=== PATIENT | female | born 1990 | race Caucasian/White ===

== ENCOUNTER 2019-11-01 08:30 | Emergency (ER) | payer MEDICAID, SELFPAY ==
[2019-11-01 08:42] VITALS: BP 120/66; PULSE 92; RESP 18; TEMP 37.2; O2SAT 98
--- NOTE | 2019-11-01 09:03 | ED.GENADUL_ITS ---
Discharge Plan Disposition Patient Disposition: HOME Condition: Stable Discharge Details Chief Complaint: RashLesion Clinical Impression: Dermatitis Primary Care Provider: None,None ED Provider: Noel Ferguson Home Meds and New Rx's Prescriptions: New hydrocortisone 2 % lotion 1 applic TP BID PRNQty: 29.6 RF: 0 Continued buprenorphine-naloxone [Suboxone] 8-2 mg film 2 film sublingual DAILY RF: 0 Discharge Instructions Instructions: Dermatitis (ED) Additional Instructions: Hydrocortisone as directed. Cejg-bmc-kyrhjls Benadryl as directed, remember this may cause drowsiness. Please watch for new or worsening symptoms and return to the ER for any concerns. As we discussed, and the small chance this is actually a fungal infection, you will likely get worse using the steroid cream. If this occurs I recommend discontinuing the cream and using lyeb-nho-hdjtchx antifungal medication however if you are unsure I would recommend being reevaluated. As we discussed, sometimes a skin biopsy is indicated for a more definitive diagnosis Medical Decision Making 28-year-old female presents with rash that is been present over the past week. Unknown obvious environmental exposure. They do not appear infected. No signs of systemic reaction. Given there are 4 separate lesions, in different locations, without scaling, less likely ringworm. Certainly could be insect bite from the recent camping trip or some other dermatitis. We discussed our options. She can use qyzw-gsd-rfgnqgn Benadryl and topical hydrocortisone cream. We did discuss in the small chance that this is truly ringworm, she will likely get worse with the steroids, would discontinue immediately, and then opt for lejo-obq-ohsxhqi antifungal. Patient is comfortable with this plan and has no additional questions or concerns. HPI General Mode of arrival: ambulatory . Date/Time Provider Initiated Documentation: 11/01/19 08:44 . Limitations to Documentation: no limitations . Information obtained by: patient . HPI Narrative: This is a 28-year-old female presenting for a rash that has been present for approximately 1 week on her left arm, subsequently developed a similar rash on her right arm and now onto her right hip. She denies any pain or itching, today they begin to burn slightly. She has not tried any xgcx-tpe-toerzno medication for her symptoms. Has never had a reaction like this before. She reports that she works for [employer] and questions that she may have come in contact with something. She also reports that she recently went camping questions that she may have received a bug bite. She denies any fever, shortness of breath, wheezing, tongue swelling, rash elsewhere on her body. Related Data Home Medications Medication Instructions Recorded Confirmed buprenorphine-naloxone [Suboxone] 2 film SUBLINGUAL DAILY 11/01/19 11/01/19 hydrocortisone 1 applic TP BID PRN #29.6 ml 11/01/19 Previous Rx's Medication Instructions Recorded hydrocortisone 1 applic TP BID PRN #29.6 ml 11/01/19 Allergies Allergy/AdvReac Type Severity Reaction Status Date / Time acetaminophen [From Vicodin] Allergy Swelling/Ed Unverified 11/01/19 08:48 ki hydrocodone [From Vicodin] Allergy Swelling/Ed Unverified 11/01/19 08:48 ki latex Allergy Swelling/Ed Unverified 11/01/19 08:48 ki General Stated Complaint: RashLesion LIANA: 4 Review of Systems Constitutional Constitutional: Denies fever(s) and Denies weakness ENT Ears, Nose, Mouth, and Throat: Denies throat swelling Cardiovascular Cardiovascular: Denies dyspnea Respiratory Respiratory: Denies dyspnea and Denies wheezing Musculoskeletal Musculoskeletal: Denies back pain, Denies arthralgias and Denies tingling Integumentary/Breasts Skin/Breast: Reports rash Neurologic Neurologic: Denies tingling and Denies weakness Allergic/Immunologic Allergic/Immunologic: Denies throat swelling and Denies wheezing [facility] Social History Smoking/Tobacco Use Status: Current every day Tobacco Type: cigarettes Years smoked: 15 Alcohol Intake: never Drug use: Daily Substance use type: marijuana Do you feel safe at home: Yes Do you feel safe in your relationship?: Yes Exam Const General: cooperative, healthy appearing, comfortable and no acute distress Orientation: alert and awake [facility] Head: normal to inspection, normocephalic and atraumatic Mouth: moist mucous membranes Eyes Conjunctivae: conjunctivae normal Neck Neck: normal visual inspection, trachea midline and supple Resp Effort & Inspection: normal respiratory effort and able to speak in complete sentences Cardio Rate: regular rate Rhythm: regular rhythm Skin Other: Patient has 4 separate lesions. 2 on the left forearm, one on the right forearm, one on the right hip. Left forearm size is a half dollar size and a dime size, right forearm is nickel size, right hip is dime size. All are papular, circular, erythematous. Well demarcated. No scaling or dryness. There is no warmth, induration, fluctuance, lymphangitic streaking. The areas are blanchable. No petechiae Neuro General: patient alert, patient awake, moves all extremities and no focal motor deficits Sensory Exam: no sensory deficits noted Extrem General: full ROM and no pedal edema Psych Appearance: grossly normal Mental Status: mental status grossly normal Course Vital Signs Vital signs: Vital Signs Temperature 37.2 C 11/01/19 08:42 Pulse 92 H 11/01/19 08:42 Respiratory Rate 18 11/01/19 08:42 Blood Pressure 120/66 11/01/19 08:42 Pulse Oximetry 98 11/01/19 08:42 Temperature 37.2 C 11/01/19 08:42 Temperature Source Skin 11/01/19 08:42 Pulse 92 H 11/01/19 08:42 Respiratory Rate 18 11/01/19 08:42 Respiratory Effort Non-Labored 11/01/19 08:42 Blood Pressure 120/66 11/01/19 08:42 Blood Pressure Position Sitting 11/01/19 08:42 Pulse Oximetry 98 11/01/19 08:42 Oxygen Delivery Method Room Air 11/01/19 08:42 Oxygen Flow Rate 0 11/01/19 08:42 Pain Level 0 11/01/19 08:42
== END 2019-11-01 09:20 | disposition home or self-care (01) ==
PROVIDERS: Emergency Provider Physician Assistant
DX: L30.8 Other specified dermatitis (principal)
CPT/HCPCS: 99283

== ENCOUNTER 2020-01-28 12:29 | Outpatient (REF) | payer MEDICAID, SELFPAY ==
[2020-01-28 19:23] LABS: Anion Gap 6.8 mmol/L (3-11); BUN 12 mg/dL (7-18); CO2 28.2 mmol/L (21.0-32.0); CREATININE 0.85 mg/dL (0.55-1.02); Calcium 9.1 mg/dL (8.5-10.1); Calculated LDL 155 mg/dL (<100); Chloride 103 mmol/L (98-107); Cholesterol 229 mg/dL (<200); Glucose 87 mg/dL (74-106); HDL Cholesterol 55 mg/dL (40-60); Potassium 4.2 mmol/L (3.5-5.1); Sodium 138 mmol/L (136-145); Triglyceride 98 mg/dL (<150)
[2020-02-04 15:17] LABS: Factor V Leiden(R506Q) Mut Negative (Negative)
== END 2020-01-28 12:49 ==
LOC: NCHCN 12:29
PROVIDERS: Visit Provider Physician Assistant
DX: Z13.228 Encounter for screening for other metabolic disorders (principal); Z13.220 Encounter for screening for lipoid disorders; Z13.0 Encounter for screening for diseases of the blood and blood-forming organs and certain disorders involving the immune mechanism
CPT/HCPCS: 80048; 80061; 81241

== ENCOUNTER 2021-09-07 23:10 | Emergency (ER) | payer MEDICAID, SELFPAY ==
[2021-09-07 23:17] VITALS: BP 125/77; PULSE 97; RESP 16; TEMP 36.8; O2SAT 98
--- NOTE | 2021-09-07 23:27 | ED.GENADUL_ITS ---
Discharge Plan Disposition Patient Disposition: HOME Condition: Good Discharge Details Clinical Impression: Pain, dental Primary Care Provider: Hussain Segura ED Provider: Matthew Doshi Home Meds and New Rx's Prescriptions: New penicillin V potassium 500 mg tablet 500 mg PO QID 10 Days Qty: 40 0RF Continued buprenorphine-naloxone [Suboxone] 8-2 mg film 2 film sublingual DAILY Label Comments: PLACE TWO FILMS UNDER THE TONGUE EVERY DAY Discharge Instructions Instructions: Toothache (ED) Additional Instructions: The block we administered should help improve your pain. Please take 800 mg of ibuprofen every 6 hours and 1000 mg of Tylenol every 6 hours to help with the inflammation and pain. These are the maximum doses. Please take the antibiotic as directed to help with the infection in your tooth. Please use the dental list that we have provided to contact the dentist for prompt follow-up and evaluation for tooth removal. If you notice any worsening of your symptoms, or any new symptoms such as difficulty swallowing, difficulty breathing, vomiting, diarrhea, fever, chills, shortness of breath, chest pain, numbness, weakness, or fainting , please return immediately to the emergency department for reevaluation. Please follow up with your primary care provider as soon as possible for reassessment and reevaluation. As always, it was a pleasure participating in your medical care today. Referrals: Hussain Segura [Primary Care Provider] - Medical Decision Making This is a 30-year-old female with no significant past medical history who is currently on Suboxone who presents today for evaluation of right upper dental pain. Patient has notably poor dentition, and she has not yet seen the dentist. Over the last 36 hours she has noticed pain and swelling in the right upper area by her right upper canine. She has been taking Tylenol with some improvement. She has not been able to start on an antibiotic yet. She denies any difficulty swallowing. Denies fever. No other complaints at this time. No other modifying factors. Physical exam demonstrates notably poor dentition throughout. No evidence of abscess failure. There is some mild swelling of the right canine area. Bedside ultrasound shows no evidence of fluid collection though currently. Dental block was performed and the patient has complete resolution of her pain. She tolerated this well. Consent was given. We will give a bottle of penicillin here and a prescription for home. Will give dental sheet for home use. Discussed red flags which to return. I have extensively reviewed the treatment plan and discharge instructions with the patient. I have addressed all patient concerns at this time. The patient was made aware of what symptoms to monitor for that would warrant a return to the emergency department. Discussed the plan with the patient, they demonstrate verbal understanding and agreement with our assessment and plan at this time. The documentation in this chart was dictated using [employer] dictation software. Please excuse any dictation errors. HPI General Date/Time Provider Initiated Documentation: 09/07/21 23:12 . HPI Narrative: This is a 30-year-old female with no significant past medical history who is currently on Suboxone who presents today for evaluation of right upper dental pain. Patient has notably poor dentition, and she has not yet seen the dentist. Over the last 36 hours she has noticed pain and swelling in the right upper area by her right upper canine. She has been taking Tylenol with some improvement. She has not been able to start on an antibiotic yet. She denies any difficulty swallowing. Denies fever. No other complaints at this time. No other modifying factors. Related Data Home Medications Medication Instructions Recorded Confirmed buprenorphine 8 mg-naloxone 2 mg 2 film sublingual DAILY 11/01/19 09/07/21 sublingual film (Suboxone) penicillin V potassium 500 mg 500 mg PO QID 10 days #40 tabs 09/07/21 tablet Previous Rx's Medication Instructions Recorded penicillin V potassium 500 mg 500 mg PO QID 10 days #40 tabs 09/07/21 tablet Allergies Allergy/AdvReac Type Severity Reaction Status Date / Time acetaminophen [From Vicodin] Allergy Swelling/Ed Unverified 09/07/21 23:20 ki hydrocodone [From Vicodin] Allergy Swelling/Ed Unverified 09/07/21 23:20 ki latex Allergy Swelling/Ed Unverified 09/07/21 23:20 ki General Stated Complaint: DentalOral LIANA: 4 Review of Systems All systems reviewed & are unremarkable except as noted in HPI and below PFSH All Active Problems Pain, dental (Acute) Social History Smoking/Tobacco Use Status: Current every day Tobacco Type: cigarettes Years smoked: 15 Smoking risk assessment performed?: Yes Alcohol Intake: never Drug use: Daily Substance use type: marijuana Do you feel safe at home: Yes Do you feel safe in your relationship?: Yes Exam Narrative Exam Narrative: 1.Const: Well-nourished, Well-developed, appearing stated age 2.Eyes: PERRL, no conjunctival injection, and symmetrical lids. 3.ENT: Atraumatic external nose and ears. Moist MM. Neck: Symmetric, trachea midline, No thyromegaly. Patient does demonstrate a small area of swelling over the right upper canine. No fluctuance though. Bedside ultrasound shows no ev idence of large fluid collection that could be easily drained. No evidence of Ludewig's angina. Notably poor dentition throughout. Multiple old fractures of these teeth are present. No signs of airway compromise whatsoever. 4.CVS: +S1/S2, No murmurs or gallops. Peripheral pulses 2+ and equal in all extremities. Brisk capillary refill in all extremities. 5.RESP: Unlabored respiratory effort. Clear to auscultation bilaterally. No wheezes rales or rhonchi 6.GI: Soft, Nontender/Nondistended, No hepatosplenomegaly. No guarding or rebound. 7.MSK: Normocephalic/Atraumatic, Extremities w/o deformity or ttp No cyanosis or clubbing, Normal movement of all extremities 8.Skin: Warm, Dry. No rashes or lesions. 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 Sensation grossly intact, no focal blaze rologic deficits. 10.Psych: (AAO) x3. Appropriate mood and affect Course Vital Signs Vital signs: Vital Signs Temperature 36.8 C 09/07/21 23:17 Pulse 97 H 09/07/21 23:17 Respiratory Rate 16 09/07/21 23:17 Blood Pressure 125/77 09/07/21 23:17 Pulse Oximetry 98 09/07/21 23:17 Temperature 36.8 C 09/07/21 23:17 Temperature Source Tympanic 09/07/21 23:17 Pulse 97 H 09/07/21 23:17 Respiratory Rate 16 09/07/21 23:17 Respiratory Effort Non-Labored 09/07/21 23:20 Blood Pressure 125/77 09/07/21 23:17 Pulse Oximetry 98 09/07/21 23:17 Pain Level 10 09/07/21 23:20 Procedures Nerve Block Nerve Block 1: Time out performed: Yes Local Anesthetic: Bupivicaine 0.5% Amount of anesthesia used (mL): 3 Side: right Intraoral Nerve Block: superior alveolar Procedure Successful: Yes Patient Tolerated Procedure: well Complications: none PAWSS Have you Been Recently Intoxicated or Drunk Within the Last 30 days?: No Have you Ever Experienced Previous Episodes of Alcohol Withdrawal?: No Have you ever Experienced Withdrawal Seizures?: No Have you ever Experienced Delirium Tremens(DT)s?: No Have you ever undergone Alcohol Rehabilitation Treatment (i.e, inpt ot outpatient treatment programs)?: No Have you ever Experienced Blackouts?: No Have you ever Combined Alcohol with other Downers within the last 90 days?: No Have you ever Combined Alcohol with any other Substance of Abuse during the last 90 days?: No Positive Blood Alcohol level on Presentation? [PCS.BAL]: No Evidence of Increased Autonomic Activity (i.e. HR>120, tremor, sweating, agitation, nausea)?: No Result: 0
[2021-09-07] MEDS: Ketorolac 30 MG/ML VIAL IM (23:35)
[2021-09-07] MEDS: Bupivacaine 0.5% Pres-Free 30 ML VIAL (23:35)
[2021-09-07] MEDS: Penicillin V POTASSIUM 500 MG TAB, 4 TABS/BTL PO (23:36)
== END 2021-09-07 23:46 | disposition home or self-care (01) ==
PROVIDERS: Emergency Provider Student in an Organized Health Care Education/Training Program; PCP Physician Assistant
DX: K08.89 Other specified disorders of teeth and supporting structures (principal)
CPT/HCPCS: 96372; 99284; 99283; J1885

== ENCOUNTER 2023-11-04 14:20 | Outpatient (REF) | payer MEDICAID, SELFPAY ==
[2023-11-04 17:28] LABS: *AMPHETAMINES SCREEN URINE Negative (Negative); *BARBITURATES SCREEN URINE Negative (Negative); *BENZODIAZEPINES SCREEN URINE Negative (Negative); Cannabinoids THC Positive (Negative); Cocaine Screen,Urine Negative (Negative); METHADONE URINE SCREEN Negative (Negative); OPIATES URINE SCREEN Negative (Negative); Tricyclic Antidepressants Negative (Negative)
[2023-11-07 10:18] LABS: Fentanyl Scr w/Rfx Confirm Negative ng/mL (<1)
[2023-11-08 11:00] LABS: Buprenorphine 357.4 ng/mL (Cutoff: 5.0)
== END 2023-11-04 14:21 | disposition home or self-care (01) ==
LOC: LBN 14:20
PROVIDERS: PCP Physician Assistant; Visit Provider Advanced Practice Midwife
DX: F11.20 Opioid dependence, uncomplicated (principal); Z34.91 Encounter for supervision of normal pregnancy, unspecified, first trimester
CPT/HCPCS: 80307; 80348; 87086

== ENCOUNTER 2023-11-18 01:46 | Outpatient (CLI) | payer MEDICAID, SELFPAY ==
[2023-11-18 14:38] LABS: Panorama Kit Sent via Fed Ex
[2023-11-18 14:47] LABS: Glucose,1 Hr (Glucola) 96 mg/dL (80-140)
== END 2023-11-18 01:47 | disposition home or self-care (01) ==
LOC: LBO 01:46
PROVIDERS: Advanced Practice Midwife; PCP Physician Assistant; Visit Provider Advanced Practice Midwife
DX: Z34.82 Encounter for supervision of other normal pregnancy, second trimester (principal); Z36.89 Encounter for other specified antenatal screening; Z3A.14 14 weeks gestation of pregnancy
CPT/HCPCS: 36415; 81220; 81222; 82950; 86787; 86803; 86850; 86900; 86901; 87340; 87389; 85025; 86762; 86780

== ENCOUNTER 2023-11-18 13:43 | Outpatient (REF) | payer MEDICAID, SELFPAY ==
[2023-11-18 15:47] LABS: *AMPHETAMINES SCREEN URINE Negative (Negative); *BARBITURATES SCREEN URINE Negative (Negative); *BENZODIAZEPINES SCREEN URINE Negative (Negative); Cannabinoids THC Positive (Negative); Cocaine Screen,Urine Negative (Negative); METHADONE URINE SCREEN Negative (Negative); OPIATES URINE SCREEN Negative (Negative)
[2023-11-18 15:49] LABS: Tricyclic Antidepressants Negative (Negative)
[2023-11-21 09:41] LABS: Fentanyl Scr w/Rfx Confirm Negative ng/mL (<1)
[2023-11-23 13:13] LABS: Norbuprenorphine >25000 ng/mL (Cutoff: 2.5)
== END 2023-11-18 13:44 | disposition home or self-care (01) ==
LOC: LBN 13:43
PROVIDERS: PCP Physician Assistant; Visit Provider Advanced Practice Midwife
DX: Z34.90 Encounter for supervision of normal pregnancy, unspecified, unspecified trimester (principal); B96.89 Other specified bacterial agents as the cause of diseases classified elsewhere
CPT/HCPCS: 80307; 80348; 87086

== ENCOUNTER 2023-12-30 00:20 | Outpatient (CLI) | payer MEDICAID, SELFPAY ==
--- NOTE | 2023-12-30 08:30 | DI.US_ITS ---
Exam(s) US OB 2-3 TRIMESTER EXAM: US OB 2-3 TRIMESTER CLINICAL HISTORY: survey,z34.90. TECHNIQUE: Transabdominal obstetrical ultrasound was performed. COMPARISON: US POCUS EXAM from 10/31/2023 FINDINGS: There is a single viable intrauterine gestation with cardiac activity identified-151 bpm. Amniotic fluid: There is a normal amount of amniotic fluid. Placental location: The placenta is anterior grade 1,with no evidence of placenta previa. ANATOMY: A 3 vessel umbilical cord is seen. A four-chamber cardiac view was obtained. Right and left ventricular outflow tracts were imaged. There are no obvious abnormalities of the spinal column evident. There is no obvious abnormal ity of the anterior abdominal wall. stomach and urinary bladder are identified and there is no evidence of hydronephrosis. No abnormalities of the upper lip region are identified. No evidence of choroid plexus cysts i n the brain. Dating parameters place this at approximately 20 weeks and 4 days gestational age. BPD measures 20 weeks and 1 day HC measures 20 weeks and 5 days AC measures 21 weeks and 1 day FL measures 20 weeks and 3 days Estimated weight is 376 gm-0 pounds, 13 ounces Fetus is at the 48th percentile on the Hadlock scale. IMPRESSION:: Single viable intrauterine gestation which is approximately 20 weeks and 4 days gestati onal age, implying an YOLANDA of 05/14/2024. There are no obvious anomalies evident on today's study. The placenta is anterior with no evidence of placenta previa. There is a normal amount of amniotic fluid. DATA REPOSITORY:
== END 2023-12-30 00:40 ==
PROVIDERS: PCP Physician Assistant; Visit Provider Advanced Practice Midwife
DX: Z34.92 Encounter for supervision of normal pregnancy, unspecified, second trimester (principal); Z3A.18 18 weeks gestation of pregnancy
CPT/HCPCS: 76805

== ENCOUNTER 2024-04-13 13:45 | Outpatient (REF) | payer MEDICAID, SELFPAY | END 2024-04-13 13:46 | disposition home or self-care (01) | LOC: LBN 13:45 | PROVIDERS: PCP Physician Assistant; Visit Provider Obstetrics & Gynecology Gynecology | DX: Z34.93 Encounter for supervision of normal pregnancy, unspecified, third trimester (principal) | CPT/HCPCS: 87081 ==

== ENCOUNTER 2024-04-19 13:32 | Outpatient (REF) | payer MEDICAID, SELFPAY ==
[2024-04-19 15:22] LABS: Absolute Lymphocyte Count 1.82 10^3/uL (1.2-3.4); Basophils % 0.4 %; Eosinophils % 0.4 %; HCT 37.2 % (36.0-46.0); HGB 12.4 g/dL (11.2-15.7); Immature Grans % 0.7 %; Lymphocytes % 13.5 %; MCH 31.2 pg (27.0-33.0); MCHC 33.3 % (32.0-36.0); MCV 94 fL (80-95); MPV 9.6 fL (8.0-11.0); Monocytes % 3.9 %; Neutrophils % 81.1 %; Platelet Count 472 10^3/uL (130-400); RBC 3.98 10^6/uL (3.93-5.22); RDW 11.8 % (11.7-14.6); RDW-SD 40.6 fL
[2024-04-19 15:23] LABS: Absolute Basophil Count 0.05 10^3/uL (0.0-0.2); Absolute Eosinophil Count 0.05 10^3/uL (0.0-0.7); Absolute Monocyte Count 0.53 10^3/uL (0.1-0.8); Absolute Neutrophil Count 10.95 10^3/uL (1.2-6.7)
[2024-04-19 15:31] LABS: ALT 27 U/L (14-59); AST 28 U/L (15-37); Albumin 2.6 g/dL (3.4-5.0); Alkaline Phosphatase 217 U/L (46-116); Anion Gap 10.4 mmol/L (3-11); BUN 9 mg/dL (7-18); Bilirubin, Total 0.38 mg/dL (0.2-1.0); CO2 23.6 mmol/L (21.0-32.0); CREATININE 0.8 mg/dL (0.55-1.02); Calcium 9.3 mg/dL (8.5-10.1); Chloride 104 mmol/L (98-107); Estimated GFR 99.71 (mL/min/1.73m2); Glucose 75 mg/dL (74-106); Potassium 3.9 mmol/L (3.5-5.1); Sodium 138 mmol/L (136-145); Total Protein 7.6 g/dL (6.4-8.2)
[2024-04-19 15:36] LABS: PROTEIN 75.8 mg/dL; Prot/Crea Ur Ratio 0.24
[2024-04-19 15:40] LABS: *AMPHETAMINES SCREEN URINE Negative (Negative); *BARBITURATES SCREEN URINE Negative (Negative); *BENZODIAZEPINES SCREEN URINE Negative (Negative); Cannabinoids THC Positive (Negative); Cocaine Screen,Urine Negative (Negative); METHADONE URINE SCREEN Negative (Negative); OPIATES URINE SCREEN Negative (Negative)
[2024-04-19 15:45] LABS: Tricyclic Antidepressants Negative (Negative)
[2024-04-20 09:12] LABS: Hepatitis B Surface Ag Negative (Negative)
[2024-04-20 09:15] LABS: Varicella IgG Antibody Positive (See Note)
[2024-04-20 09:17] LABS: Rubella IgG Ab (UVM) Positive (See Note)
[2024-04-20 10:17] LABS: HIV-1/2 Ag & Ab Screen Negative (Negative)
[2024-04-20 10:43] LABS: Hepatitis C Ab w Rflx HCV PCR Reactive (Negative)
[2024-04-20 11:06] LABS: Fentanyl Scr w/Rfx Confirm Negative ng/mL (<1)
[2024-04-20 11:24] LABS: Chlamydia Result Negative (Negative); GC Result Negative (Negative)
[2024-04-21 13:46] LABS: Syphilis IgG w/Reflex Nonreactive (Nonreactive)
[2024-04-23 12:20] LABS: HCV RNA Detection Quantitative 246 IU/mL (Undetected); HCV RNA Qualitative Detected (Undetected)
[2024-04-26 09:12] LABS: Buprenorphine 4338.6 ng/mL (Cutoff: 5.0)
== END 2024-04-19 13:33 | disposition home or self-care (01) ==
LOC: LBN 13:32
PROVIDERS: Advanced Practice Midwife; PCP Physician Assistant; Visit Provider Obstetrics & Gynecology
DX: Z34.92 Encounter for supervision of normal pregnancy, unspecified, second trimester; Z3A.20 20 weeks gestation of pregnancy
CPT/HCPCS: 80053; 80307; 80348; 81220; 81222; 86787; 86803; 86850; 86900; 86901; 87340; 87389; 87491; 87522; 87591; 82565; 84156; 85025; 86762; 86780

== ENCOUNTER 2024-05-13 07:27 | Inpatient (IN) | payer MEDICAID, SELFPAY ==
[2024-05-13] VITALS (208 sets, daily range): BP systolic 97–129; BP diastolic 53–85; PULSE 51–92; RESP 16–18; TEMP 36.4–37.2; O2SAT 81–100; BMI 32.8
--- NOTE | 2024-05-13 07:31 | HPE_ITS ---
Date of service: 05/13/24 Time of Service: 07:31 Assessment and Plan Assessment and plan (1) Hepatitis C antibody test positive: Status: Acute (2) Opiate dependence: Status: Acute Assessment and plan: will continue current dose of Subutex (3) Uterine contractions: Status: Acute (4) Normal labor: Status: Acute Assessment and plan: 5cm. plan epidural. anticipate OB-HPI Labor/Delivery History of Present Illness Reason for Visit: IUP at 40w, active labor, srom Chief Complaint: Uterine Contractions; Suspected Rupture of Membranes , Associated Signs and Symptoms of Suspected ROM: pt report, confirmed on SVE. ; Suspected Labor. YOLANDA Calculator Estimated Delivery Date Method Current WG Current Estimate 05/13/24 Ultrasound #1 40w 0d Other Estimates 06/11/24 LMP (Uncertain) 35w 6d History of Present Expected Delivery Route/Plan - MD FOB/boyfriend - Cj Bradley (6 other children, all healthy) Specific Issues/Plan 1. H/o IVD/alcohol use: MAT@ [employer], MJ and cig use (5P+) - initial UDS: +THC/bup - Repeat UDS 36wks 2. Hx PPH age 19 after prolonged labor 3. Poor dentition, referred to dental care 4. BMI 33, early glucola=96 5. Hx bipolar, depression, anxiety, no meds, declines [facility] referral 6. PAP is due: will need pp pap 7. Inconsistent care: 4mo gap from Nov-Mar 8. Hepatitis C Reactive, awaiting titer: 246 Narrative: Pt followed by MD service at [facility]. Entry to care at 24w EGA. Total 7 visits. GBS neg. SROM at 0500 this morning. Contractions began shortly after. Arrived on BC hiral and in discomfort. Informed Consent Informed Consent: Regional Anesthesia and Risk,Benefits,Alternatives Discussed Review of Systems All systems reviewed & are unremarkable except as noted in HPI and below PFSH All Active Problems (Updated 05/13/24 @ 07:52 by Jackie Mcdowell MD) Normal labor (Acute) Uterine contractions (Acute) Hepatitis C antibody test positive (Acute) Depression (Chronic) Anxiety (Chronic) Migraine (Chronic) Poor dentition requiring referral to dentistry (Acute) Opiate dependence (Acute) (Acute) Medical History (Updated 01/19/25 @ 07:52 by Jackie Mcdowell MD) History of intravenous drug use in remission Delayed menses Nexplanon removal Family History (Updated 10/10/23 @ 11:00 by Ynes Kelley RN) Other Blood clotting disorder Breast cancer Heart disease Hyperlipidemia Hypertension Ovarian cancer Uterine cancer Social History (Updated 05/13/24 @ 07:49 by Jackie Mcdowell MD) Smoking/Tobacco Use Status: Current every day Tobacco Type: cigarettes Years smoked: 15 Tobacco: How many years used: 15 Quit status: not considering quitting Smoking risk assessment performed?: Yes Alcohol Intake: never Drug use: Daily Substance use type: marijuana Counseling provided: treatment program Household members: significant other and other Details: CONSTANCE Bradley (six other children) Housing: house Number of Children: 1 Do you feel safe at home: Yes Do you feel safe in your relationship?: Yes Female Reproductive History Menstrual control method: none History History 2 Para 1 Hx # Term Pregnancies 1 Multiple births 0 Hx # Pregnancies 0 Ectopic pregnancies 0 AB induced 0 Hx Number of Living Children 1 AB spontaneous 0 Past Pregnancies Del. Date GA/Weeks # Preg Succ Route Wgt Sex Labor Lgth Anesth esia Location [facility] 05/03/10 39 No Yes vaginal 7 lb 8 oz Male 48 hrs regional D rJustin Sony and Anea Delivery Date: 05/03/10 Last Updated by: Heide Jason Long labor, epidural that didn't work, Pit nov, PPH 1500 ml, no transfusion Maury Meds Allergies and Home Medications Allergies Allergy/AdvReac Type Severity Reaction Status Date / Time acetaminophen (From Vicodin) Allergy Swelling/Ed Unverified 05/08/24 15:18 ki hydrocodone (From Vicodin) Allergy Swelling/Ed Unverified 05/08/24 15:18 ki latex Allergy Swelling/Ed Unverified 05/08/24 15:18 ki Home Medications ?Medication ?Instructions ?Recorded ?Confirmed ?Type pediatric multivitamin 1 tab PO DAILY 10/10/23 04/19/24 History (Flintstones Multivitamin chewable tablet) aspirin 81 mg tablet,delayed 81 mg PO DAILY #60 tabs 11/04/23 04/19/24 Rx release buprenorphine 12 mg-naloxone 3 mg 2 film buccal Q24H #30 ea 11/18/23 04/19/24 Rx sublingual film Exam Physical Exam Vital signs: Pulse BP 64 126/69 05/13/24 07:14 05/13/24 07:14 Vital Signs Reviewed: Yes Constitutional Constitutional: mild distress (breathing through contractions.) and obese Detailed Labor and Delivery Exam Dilation: 5 Effacement (%): 100 station: 0 Position: OA Cervix position: mid Consistency: soft Carrillo Score: Cervical Points Exam 0 1 2 3 Dilation Closed 1-2cm 3-4 cm 5-6cm Effacement 0-30% 40-50% 60-70% 80% Consistency Firm Medium Soft Station -3 -2 -1,0 +1,+2 Position Posterior Mid Anterior Amniotic Membrane Status: Ruptured Rupture Method: Spontaneous Amniotic Fluid: Clear Monitor Mode: External Contraction Frequency(min): 3-4 Contraction Duration(sec): 50 Contraction Intensity: Moderate Fetus A Heart Rate Baseline: 125 Monitor Accelerations: 15 X 15 Monitor Decelerations: None Variability: Moderate (6-25 BPM) Presentation: Cephalic Categories: Category I Est. Weight: 3500 lb Date of Membrane Rupture: 05/13/24 Time of Membrane Rupture: 05:00 HEENT Exam HEENT Exam: Abnormal (poor dentition) Chest/Brest/Axilla Exam Chest Exam: Not Done Respiratory Exam Respiratory Exam: Normal Cardiovascular Exam Cardiovascular Exam: Normal Abdominal Exam Abdominal Exam: Normal Rectal Exam Rectal Exam: Not Done Exam Exam: Normal Extremities Exam Extremities Exam: Normal Back/Spine/Pelvis Exam Back Exam: Normal Skin Exam Skin Exam: Normal Neurological Exam Neurological Exam: Normal Psychiatric Exam Psychiatric Exam: Normal Results Results Group Beta Strep: Negative Blood Type: O+ Rubella Status: Immune Varicella Immunity: Immune Lab Results: Hep C +. Risk Assessment Risk for Shoulder Dystocia Historical/Initial OB: POSITIVE FOR: Pre- BMI>30; NEGATIVE FOR: Pelvic Abnormality, Previous Shoulder Dystocia or Previous Macrosomia Risk for Pre-Eclampsia Date Initiated/Initials: will advise to start ELTON 11/04/23 jk Yes, if one or more: NEGATIVE FOR: Hx Pre-E/Gest HTN, Chronic HTN, Multiple Gestation, Pre-gestational DM, Renal Disease, Systemic Lupus or APA Syndrome Yes, if 2 or more: POSITIVE FOR: >10yr btwn pregnancies and BMI>30; NEGATIVE FOR: Nulliparity, Age>= 35 yrs, ethinicty, Mother/Sister w/ Pre-E or Previous IUGR Risk for Post- Hemorrhage Initial: POSITIVE FOR: Previous PPH; NEGATIVE FOR: Multiple Gestation, Known Clotting Deficiency, Grand Multiparity or Anticoagulation Risks Reviewed Risks Reviewed Upon Admission: Yes
[2024-05-13] MEDS: Lactated Ringers 1,000 ML 125 ML IV ×2 (07:52→12:28)
[2024-05-13 08:00] LABS: HCT 39.8 % (36.0-46.0); HGB 13.2 g/dL (11.2-15.7); MCH 30.8 pg (27.0-33.0); MCHC 33.2 % (32.0-36.0); MCV 93 fL (80-95); MPV 9.1 fL (8.0-11.0); Platelet Count 395 10^3/uL (130-400); RBC 4.28 10^6/uL (3.93-5.22); RDW 12.2 % (11.7-14.6); RDW-SD 41.5 fL; WBC 16.04 10^3/uL (4.4-10.8)
[2024-05-13 08:18] LABS: ALT 12 U/L (14-59); AST 14 U/L (15-37); Albumin 2.5 g/dL (3.4-5.0); Alkaline Phosphatase 224 U/L (46-116); Anion Gap 11.2 mmol/L (3-11); BUN 9 mg/dL (7-18); Bilirubin, Total 0.33 mg/dL (0.2-1.0); CO2 23.8 mmol/L (21.0-32.0); CREATININE 0.8 mg/dL (0.55-1.02); Calcium 9.3 mg/dL (8.5-10.1); Chloride 104 mmol/L (98-107); Estimated GFR 99.71 (mL/min/1.73m2); Glucose 95 mg/dL (74-106); Potassium 3.7 mmol/L (3.5-5.1); Sodium 139 mmol/L (136-145); Total Protein 7.4 g/dL (6.4-8.2)
[2024-05-13] MEDS: FentaNYL/ROPIvacaine 2 mcg/ml and 0.1% 200 ML CADD Cassette EP (08:22)
--- NOTE | 2024-05-13 08:43 | ANES.PREOP_ITS ---
General Info Date of Service Date Performed: 05/13/24 Height: 5 ft 4 in Weight: 86.636 kg Body Mass Index (BMI): 32.8 Meds Allergies and Home Medications Allergies Allergy/AdvReac Type Severity Reaction Status Date / Time acetaminophen (From Vicodin) Allergy Swelling/Ed Unverified 05/08/24 15:18 ki hydrocodone (From Vicodin) Allergy Swelling/Ed Unverified 05/08/24 15:18 ki latex Allergy Swelling/Ed Unverified 05/08/24 15:18 ki Home Medication ?Medication ?Instructions ?Recorded pediatric multivitamin 1 tab PO DAILY 10/10/23 (Flintstones Multivitamin chewable tablet) aspirin 81 mg tablet,delayed 81 mg PO DAILY #60 tabs 11/04/23 release buprenorphine 12 mg-naloxone 3 mg 2 film buccal Q24H #30 ea 11/18/23 sublingual film Current Visit Medications: Current Medications Generic Name Dose Route Start Last Admin Trade Name Freq PRN Reason Stop Dose Admin Buprenorphine/Naloxone 2 each 05/13/24 08:00 Buprenorphine/Naloxone 12 Mg/3 Mg Film SL Q24H CORBIN Fentanyl/Ropivacaine 200 ml 05/13/24 07:30 Fentanyl/Ropivacaine 2 Mcg/Ml And 0.1% 200 Ml Cadd Cassette EP DIRECTED CORBIN Ringer's Solution 1,000 mls @ 125 mls/hr 05/13/24 07:30 05/13/24 07:52 IV 125 mls/hr INFUSION CORBIN Administration IV Miscellaneous Supplies 1 each 05/13/24 07:30 Iv Access IV DIRECTED CORBIN Sodium Chloride 0 ml 05/13/24 07:27 Normal Saline Flush 10 Ml Syr IVP PRN PRN Sodium Chloride 0 ml 05/13/24 08:30 Normal Saline Flush 10 Ml Syr IVP BID CORBIN Sodium Chloride 0 ml 05/13/24 07:27 Normal Saline 10 Ml Vial IJ DIRECTED PRN PFSH Active Problems Active Problems: Problem Status Onset Code Normal labor Acute O80, Z37.9 Uterine contractions Acute O47.9 Hepatitis C antibody test positive Acute R76.8 Depression Chronic F32.A Anxiety Chronic F41.9 Migraine Chronic G43.909 Poor dentition requiring referral to dentistry Acute Z76.89 Opiate dependence Acute F11.20 Acute Z34.90 Medical History Medical History (Updated 05/13/24 @ 07:52 by Jackie Mcdowell MD) History of intravenous drug use in remission Delayed menses Nexplanon removal Tobacco Smoking/Tobacco Use Status: Current every day Tobacco Type: cigarettes Years smoked: 15 Alcohol Alcohol Intake: never Substance Use Substance use: Daily Substance use type: marijuana Counseling provided: treatment program Prental History History 2 2 Para 1 Hx # Term Pregnancies 1 Multiple births 0 Hx # Pregnancies 0 Ectopic pregnancies 0 AB induced 0 Hx Number of Living Children 1 AB spontaneous 0 Past Pregnancies Del. Date GA/Weeks # Preg Succ Route Wgt Sex Labor Lgth Anesth esia Location Prov Complic 05/03/10 39 No Yes vaginal 3401.943 g Male [address] Cardoza and Anea Delivery Date: 05/03/10 Last Updated by: Heide Jason Long labor, epidural that didn't work, Pit nov, PPH 1500 ml, no transfusion Maury Vital Signs and Lab Results Vital Signs Most Recent Vital Signs in EMR: Most Recent Vital Signs Pulse BP Pulse Ox 55 L 116/57 L 97 05/13/24 08:42 05/13/24 08:41 05/13/24 08:42 Lab Results 05/13/24 07:50 05/13/24 07:50 Blood Type / Crossmatch: 2 Antibody Screen NEGATIVE 04/19/24 Complete Blood Count: 2 White Blood Count 16.04 10^3/uL (4.4-10.8) H 05/13/24 07:50 Red Blood Count 4.28 10^6/uL (3.93-5.22) 05/13/24 07:50 Hemoglobin 13.2 g/dL (11.2-15.7) 05/13/24 07:50 Hematocrit 39.8 % (36.0-46.0) 05/13/24 07:50 Platelet Count 395 10^3/uL (130-400) 05/13/24 07:50 Complete Metabolic Panel: 2 Sodium 139 mmol/L (136-145) 05/13/24 07:50 Potassium 3.7 mmol/L (3.5-5.1) 05/13/24 07:50 Chloride 104 mmol/L (98-107) 05/13/24 07:50 Carbon Dioxide 23.8 mmol/L (21.0-32.0) 05/13/24 07:50 BUN 9 mg/dL (7-18) 05/13/24 07:50 Creatinine 0.8 mg/dL (0.55-1.02) 05/13/24 07:50 Est GFR (CKD-EPI 2020) 99.71 (mL/min/1.73m2) 05/13/24 07:50 Calcium 9.3 mg/dL (8.5-10.1) 05/13/24 07:50 Albumin 2.5 g/dL (3.4-5.0) L 05/13/24 07:50 Glucose 95 mg/dL (74-106) 05/13/24 07:50 Liver Function Panel: 2 Alanine Aminotransferase (ALT/SGPT) 12 U/L (14-59) L 05/13/24 0 7:50 Aspartate Amino Transf (AST/SGOT) 14 U/L (15-37) L 05/13/24 07: 50 Coagulation Panel: 2 No Data to Display Cardiac Panel: 2 No Data to Display Arterial Blood Gas: 2 No Data to Display Venous Blood Gas: 2 No Data to Display Pancreas Panel: 2 No Data to Display Thyroid Panel: 2 No Data to Display Infectious Disease: 2 HIV (1&2) Ag and Ab, 4th Generation Negative (Negative) 13:45 Hepatitis B Surface Antigen Negative (Negative) 04/19/24 13:45 Hepatitis C Antibody Reactive (Negative) A 04/19/24 13:45 Hepatitis C RNA Quantitative 246 IU/mL (Undetected) H 04/19/24 13:45 Neisseria gonorrhoeae DNA Probe Negative (Negative) 04/19/24 1 3:35 Blood Cultures: 2 No Data to Display Toxicology Panel: 2 Urine Amphetamines Screen Negative (Negative) 04/19/24 13:55 Urine Benzodiazepines Screen Negative (Negative) 04/19/24 13:5 5 Urine Barbiturates Screen Negative (Negative) 04/19/24 13:55 Urine Cocaine Screen Negative (Negative) 04/19/24 13:55 Urine Methadone Screen Negative (Negative) 04/19/24 13:55 Urine Opiates Screen Negative (Negative) 04/19/24 13:55 Ur Tricyclic Antidepressants Screen Negative (Negative) 13:55 Ur Tetrahydrocannabinol (THC) Scrn Positive (Negative) A 04/19 13:55 Panel: 2 No Data to Display Anesthesia Assessment and Plan Anesthesia History Personal History: No History of Anesthesia Complications Family History: No Family History of Anesthesia Complications Exercise Tolerance Exercise Tolerance: Metabolic Equivalents>4 Pertinent Negatives Pertinent Negatives: No Major Cardiovascular Symptoms or Complaints and No Major Pulmonary Symptoms or Complaints Cardiac & Pulmonary Exam Cardiac Exam: Normal S1/S2 Heart Sounds Pulmonary Exam: Clear Bilateral Breath Sounds Implantable Cardiac Device Does patient have a Pacemaker or an ICD?: No Airway Exam Known Difficult Airway: No Mallampati Class: 2 Mouth Opening: Normal (> 3cm) Thyromental Distance: Greater than 3 cm Neck Range of Motion: Full ROM Neck Circumference: Normal Teeth Condition: Generalized Poor Dentition ASA Classification ASA Score: ASA 3 Emergency Case?: No NPO Status NPO Status: NPO Clears >2 hours, Solids >8 hours Status Status: Confirmed Anesthesia Plan Resuscitation Status: Full Code Anesthesia Technique: Epidural Anesthesia Airway Planned: Natural Airway Monitors Used: Standard Monitors
--- NOTE | 2024-05-13 08:46 | ANES.NEUR_ITS ---
Epidural/Spinal Catheter Date Performed: 05/13/24 Procedure Start: 08:05 Procedure Stop: 08:25 Requesting Provider: Jackie Mcdowell Procedure Location: Obstetrics Reason Performed: Labor Epidural Standard Monitors Applied: Blood Pressure, SpO2 and See EMR for corresponding vital signs Patient Position: Sitting Sedation Given (Indicate Dose Given): No Sedation given Patient Mental Status: Awake Sterility: Hand Hygiene, Surgical Cap, Surgical Mask, Sterile Gloves and Chlorhexidine Procedure Location: L2-L3 Interspace Epidural Needle: Tuohy 18 Gauge Needle Length: 4 Inch Needle Approach: Midline Epidural Procedure: Skin Prepped, Sterile Drape Placed, 1% Lidocaine to skin and subcutaneous tissue with 25G needle, Tuohy Needle placed, LACHELLE to Saline Used, Epidural Catheter Placed, Negative Heme, Negative CSF Flow and Tuohy Needle Removed Catheter Placed?: Catheter Placed Test Dose (Indicate Dose Given): 3ml 1.5% Lidocaine with 1:200K Epinephrine Given Loss of Resistance Depth (cm): 7 Catheter depth at skin (cm): 14 Dressing: [place] Dressing Placed and Mastisol Used Epidural Provider Bolus (Indicate Dose Given): Total bolus dose given in 3- 5 ml divided doses and Total Ropivacaine 0.1% with Fentanyl 2mcg/ml Given from pump. (ml) Dose:: 3, 3, 5mL Additives (Indicate Dose Given ): None Infusion Medication: Medication Infusion Began Medication Infusion: Ropivacaine 0.1% with Fentanyl 2mcg/ml Maintenance Infusion Rate (ml/hour): 10 PCEA Bolus Dose (ml): 5 Block Level: T10 Paresthesia: None Ultrasound: Not Used Number of Attempts (See previous attempts in note section): 1 Procedure Tolerated: No Complications Procedure Outcome: Successful Procedure Comment:: First area of LA administration patient did not toleate well, moved to LA of an additional interspace Performed By: Claire Graves
--- NOTE | 2024-05-13 11:26 | W.PM.OBNL1 ---
Date of service: 05/13/24 Time of Service: 11:28 Informed Consent Informed Consent: Regional Anesthesia and Risk,Benefits,Alternatives Discussed Pelvic Exam Dilation: 8 (anterior lip) Effacement (%): 100 station: 0 Position: OA Cervix Position: mid Consistency: soft Contractions Monitor Mode: External Contraction Frequency(min): 3-4 Contraction Duration(sec): 60 Intensity: Moderate (Pt now comfortable with epidural in place) Fetus A Monitor: External (US) Heart Rate Baseline: 130 Presentation: Cephalic Variability: Moderate (6-25 BPM) Categories: Category I FHR Rhythm: Regular Characteristics: Normal Accelerations: 15 X 15 Decelerations: Early Recurrence: Intermittent Amniotic Membrane Status: Ruptured Assessment and Plan Assessment and plan (1) Normal labor: Status: Acute Assessment and plan: comfortable with epidural in place. making progess. anticipate . Objective Abnormal lab results 05/13/24 Range/Units 07:50 WBC 16.04 H (4.4-10.8) 10^3/uL Anion Gap 11.2 H (3-11) mmol/L AST 14 L (15-37) U/L ALT 12 L (14-59) U/L Alkaline Phosphatase 224 H (46-116) U/L Albumin 2.5 L (3.4-5.0) g/dL Temp Pulse Resp BP Pulse Ox 98.2 F 63 18 119/67 94 05/13/24 10:08 05/13/24 11:23 05/13/24 11:00 05/13/24 11:15 05/13/24 11:23 Laboratory Results WBC 16.04 10^3/uL (4.4-10.8) H 05/13/24 07:50 RBC 4.28 10^6/uL (3.93-5.22) 05/13/24 07:50 Hgb 13.2 g/dL (11.2-15.7) 05/13/24 07:50 Hct 39.8 % (36.0-46.0) 05/13/24 07:50 MCV 93 fL (80-95) 05/13/24 07:50 MCH 30.8 pg (27.0-33.0) 05/13/24 07:50 MCHC 33.2 % (32.0-36.0) 05/13/24 07:50 RDW 12.2 % (11.7-14.6) 05/13/24 07:50 Plt Count 395 10^3/uL (130-400) 05/13/24 07:50 MPV 9.1 fL (8.0-11.0) 05/13/24 07:50 Sodium 139 mmol/L (136-145) 05/13/24 07:50 Potassium 3.7 mmol/L (3.5-5.1) 05/13/24 07:50 Chloride 104 mmol/L (98-107) 05/13/24 07:50 Carbon Dioxide 23.8 mmol/L (21.0-32.0) 05/13/24 07:50 Anion Gap 11.2 mmol/L (3-11) H 05/13/24 07:50 BUN 9 mg/dL (7-18) 05/13/24 07:50 Creatinine 0.8 mg/dL (0.55-1.02) 05/13/24 07:50 Est GFR (CKD-EPI 2020) 99.71 (mL/min/1.73m2) 05/13/24 07:50 Glucose 95 mg/dL (74-106) 05/13/24 07:50 Calcium 9.3 mg/dL (8.5-10.1) 05/13/24 07:50 Total Bilirubin 0.33 mg/dL (0.2-1.0) 05/13/24 07:50 AST 14 U/L (15-37) L 05/13/24 07:50 ALT 12 U/L (14-59) L 05/13/24 07:50 Alkaline Phosphatase 224 U/L (46-116) H 05/13/24 07:50 Total Protein 7.4 g/dL (6.4-8.2) 05/13/24 07:50 Albumin 2.5 g/dL (3.4-5.0) L 05/13/24 07:50 ABO/Rh O Positive 05/13/24 07:50 Antibody Screen NEGATIVE 05/13/24 07:50 Results Hemoglobin/Hematocrit: Hgb 13.2 g/dL (11.2-15.7) 05/13/24 07:50 Hct 39.8 % (36.0-46.0) 05/13/24 07:50 Abnormal Lab Findings: Abnormal Labs 05/13/24 07:50 WBC 16.04 H Anion Gap 11.2 H AST 14 L ALT 12 L Alkaline Phosphatase 224 H Albumin 2.5 L
[2024-05-13] MEDS: Oxytocin/Normal Saline 30 UNIT/500 ML BAG 95 UNITS IV (14:41)
[2024-05-13 15:33] LABS: *AMPHETAMINES SCREEN URINE Negative (Negative); *BARBITURATES SCREEN URINE Negative (Negative); *BENZODIAZEPINES SCREEN URINE Negative (Negative); Cannabinoids THC Positive (Negative); Cocaine Screen,Urine Negative (Negative); METHADONE URINE SCREEN Negative (Negative); OPIATES URINE SCREEN Negative (Negative)
[2024-05-13 15:39] LABS: Tricyclic Antidepressants Negative (Negative)
[2024-05-13] MEDS: Hamamelis Leaf/Glycerin 100 EACH BOX PR (15:53)
[2024-05-13] MEDS: Dibucaine 1% 28 GM TUBE TP (15:53)
[2024-05-13] MEDS: Nicotine 21 MG/24 HR PATCH TD (16:48)
[2024-05-14 06:00] VITALS: BP 112/67; PULSE 62; RESP 18; TEMP 36.7
--- NOTE | 2024-05-14 07:33 | W.OBDELIVERY ---
Date of service: 05/14/24 Time of Service: 07:33 OB Labor/ Delivery Information Baby A Delivery Delivery Method: Spontaneaous Presentation: Cephalic Cephalic Position: Vertex Vertex Position: Right Occipital Anterior Breech Position: N/A Cord Description-Baby A: 3 Vessels, Nuchal Cord, Tight and Clamped/Cut Amniotic Fluid: Clear Estimated Blood Loss: 100 Delivery Outcome: Liveborn Infant Transferred: Remains with Mother Providers Doctor: Jackie Mcdowell Nurse: Tania Olivo Nurse: Ryann Thao Other: Alexi Haney Labor/Delivery Information Number of Babies in Womb: 1 Steroids Given: None Reason Steroids Not Administered: N/A Group Beta Strep: Negative Antibiotics Administered: No Rubella Status: Immune Blood Type: O+ Varicella Immunity: Immune Shoulder Dystocia: No Stages of Labor Onset of Labor Date: 05/13/24 Onset of Labor Time: 05:10 Complete Dilatation Date: 05/13/24 Complete Dilatation Time: 12:05 Labor - Stage 1 Duration: 6 hours and 55 minutes ROM Baby A: 05/13/24 ROM Baby A: 05:00 Delivery Date-Baby A: 05/13/24 Delivery Time-Baby A: 14:38 Labor Stage 2 Duration: 2 hours and 33 minutes Placenta Delivery Date-Baby A: 05/13/24 Placenta Delivery Time-Baby A: 14:44 Labor-Stage 3 Duration: 6 minutes Total Length of Labor-Baby A: 9 hours and 28 minutes Placenta Status: Delivered Baby A Gender: Male (Damon) Gestational Status: Term (39-41.6 wks) Gestational Age in Weeks/Days: 40 Weeks and 0 Days weight: 6 lb 6.471 oz Length-Baby A: 18.5 in Head Circumference-Baby A: 13 in Score-1 Minute Interval(Baby A) Heart Rate-1 minute: 100 BPM or Greater Respiratory Effort- 1 minute: Slow Respiration/Weak Cry Muscle Tone-1 minute: Active Movement Reflex Response-1 minute: Prompt Response Color-1 minute: Bluish Hands or Feet Total Score-1 minute: 8 Score-5 Minute Interval(Baby A) Heart Rate- 5 minute: 100 BPM or Greater Respiratory Effort-5 minute: Spontaneous/Strong Cry Muscle Tone-5 minute: Active Movement Reflex Response-5 minute: Prompt Response Color-5 minute: Bluish Hands or Feet Total Score- 5 minute: 9 Interventions Repair of Laceration Type: Perineal, Laceration Extension: First Degree. Sponge Count Correct: Yes, Sharp Count Correct: Yes. Laceration Repair Note: area infiltrated with 1% Lidocaine and 2-0 Vicryl used to reapproximate the tissue in the usual fashion.
--- NOTE | 2024-05-14 07:36 | DSE_ITS ---
Date of service: 05/14/24 Time of Service: 07:36 DS: Diagnosis Discharge Diagnosis (1) Normal labor: Status: Acute (2) Hepatitis C antibody test positive: Status: Acute (3) Opiate dependence: Status: Acute Discharge Plan Disposition Patient Disposition: Home Condition: Improving Discharge Details Reason For Visit: IUP at 40w, active labor, srom Admit Date/Time: 05/13/24 07:27 Admit Provider: Jackie Mcdowell Attending Provider: Jackie Mcdowell Primary Care Provider: Hussain Segura Hospital Course Hospital Course: Pt arrived on BC 5cm dilated at 40w EGA and progressed with uncomplicated labor. Received epidural with good pain relief. of male infant named Bonilla weighing 2905gms Apgars 8/9. Formula feeding at time of discharge. Pt discharged to [facility] status while her infant remains inpatient for ALEXANDRA observation. Planning Nexplanon for contraception. Rx for Ibuprofen and Acetaminophen for pain management. Home Meds and New Rx's Prescriptions: No Action Flintstones Multivitamin Tablet,Chewable 1 tab PO DAILY aspirin 81 mg tablet,delayed release (DR/EC) 81 mg PO DAILY Qty: 60 6RF buprenorphine-naloxone 12-3 mg film 2 film buccal Q24H Qty: 30 0RF Rx Instructions: place 1 strip/tab under (each) side of tongue Discharge Instructions Stand Alone Forms: BC Post Vaginal Deliver Activity:: Activity as Tolerated Equipment/Supplies:: No Equipment Needed Diet:: As Tolerated Discharge Orders Discharge Orders: Discharge Order (Routine); Ordered 05/14/24 Ordered By: Jackie Mcdowell OB:DS Summary Summary Vaginal Delivery Method: Spontaneaous Laceration Description: Perineal Laceration Extension: First Degree Contraception Discussed Contraception Discussed: Yes (tubal sterilization) Contraceptive Plan: Tubal Ligation, [place] Infant Gender-Baby A: Male (Nelson) weight: 6 lb 6.471 oz Status at Discharge Functional status at discharge: independent ambulation Overall status at discharge: patient is progressing back to baseline Mental Status: mental status grossly normal Speech and Movement: speech and movement normal Mood: congruent mood Affect: normal affect Quality:SDOH Health Related Social Needs: Health related social needs transportation insecurity (Z59.82), problems related to housing/economic circumstances (Z59.89), education (Z55.6) Exam Physical Exam Vital signs: Temp Pulse Resp BP Pulse Ox 98.1 F 62 18 112/67 99 05/14/24 06:00 05/14/24 06:00 05/14/24 06:00 05/14/24 06:00 05/13/24 18:11 Constitutional Constitutional: no acute distress HEENT Exam HEENT Exam: Normal Detailed HEENT Exam Comments: Poor dentition Neck Exam Neck Exam: Normal Respiratory Exam Respiratory Exam: Normal Cardiovascular Exam Cardiovascular Exam: Normal Abdominal Exam Abdomen: Tender Fundal Exam Fundus: Below Umbilicus and Firm Rectal Exam Rectal Exam: Not Done Extremities Exam Extremity Exam: Normal and Full ROM Back/Spine/Pelvis Exam Back Exam: Normal Skin Exam Skin Exam: Normal Neurological Exam Neurological Exam: Normal Psychiatric Exam Psychiatric Exam: Normal (Pt wants to be discharged this am to [facility] status. ) PFSH All Active Problems (Updated 05/13/24 @ 07:52 by Jackie Mcdowell MD) Normal labor (Acute) Uterine contractions (Acute) Hepatitis C antibody test positive (Acute) Depression (Chronic) Anxiety (Chronic) Migraine (Chronic) Poor dentition requiring referral to dentistry (Acute) Opiate dependence (Acute) (Acute) Medical History (Updated 05/13/24 @ 07:52 by Jackie Mcdowell MD) History of intravenous drug use in remission Delayed menses Nexplanon removal Family History (Updated 10/10/23 @ 11:00 by Ynes Kelley RN) Other Blood clotting disorder Breast cancer Heart disease Hyperlipidemia Hypertension Ovarian cancer Uterine cancer Social History (Updated 05/14/24 @ 07:37 by Jackie Mcdowell MD) Smoking/Tobacco Use Status: Current every day Tobacco Type: cigarettes Years smoked: 15 Tobacco: How many years used: 15 Quit status: not considering quitting Smoking risk assessment performed?: Yes Alcohol Intake: never Drug use: Daily Substance use type: marijuana Counseling provided: treatment program Household members: significant other, children and other Details: CONSTANCE Bradley (six other children). Myles Damon (05/13/24) Housing: house Number of Children: 2 Do you feel safe at home: Yes Do you feel safe in your relationship?: Yes Female Reproductive History Menstrual control method: none History History 2 Para 2 Hx # Term Pregnancies 2 Multiple births 0 Hx # Pregnancies 0 Ectopic pregnancies 0 AB induced 0 Hx Number of Living Children 2 AB spontaneous 0 Past Pregnancies Del. Date GA/Weeks # Preg Succ Route Wgt Sex Labor Lgth Anesth esia Location Prov Complic 05/03/10 39 No Yes vaginal 7 lb 8 oz Male 48 hrs regional D r. Sony and Anea 05/13/24 40 No Yes vaginal 6 lb 6.471 oz Male a oc Delivery Date: 05/03/10 Last Updated by: Heide Jason Long labor, epidural that didn't work, Pit nov, PPH 1500 ml, no transfusion Maury Delivery Date: 05/13/24 Last Updated by: Jackie Mcdowell MD Conceived using Nexplanon. MAT. Damon DS: Data Vitals/I&O Vitals and I&O: Vital Signs Temperature 98.1 F 05/14/24 06:00 Temperature 97.7 F 05/13/24 07:09 Temperature Source Oral 05/14/24 06:00 Pulse 62 05/14/24 06:00 Pulse 64 05/13/24 07:09 Pulse Rhythm Regular 05/13/24 21:10 Respiratory Rate 18 05/14/24 06:00 Blood Pressure 112/67 05/14/24 06:00 Blood Pressure 126/69 05/13/24 07:09 Blood Pressure Mean 82 05/14/24 06:00 Pulse Oximetry 99 05/13/24 18:11 Pain Level 0 05/13/24 16:00 Intake & Output 05/13/24 05/13/24 05/14/24 11:59 23:59 11:59 Intake Total 575 / 585 Output Total 100 / 970 870 / 970 700 / 700 Balance -90 / -385 -295 / -385 -700 / -700 Weight 191 lb Intake: IV 575 / 585 Output: Urine 670 / 670 700 / 700 Emesis 100 / 300 200 / 300 Other: Urine Color Pale Urine Appearance Clear Urine Odor None Comment RN got patient on a bedpan, patient could not void at this time straight cath Patient thinks she has been voiding with every contraction RN bladder scanned patient at this time for 153ml. Data Completed and Pending Labs on day of discharge: Labs from last 24 hours 05/13/24 05/13/24 13:10 07:50 WBC 16.04 H RBC 4.28 Hgb 13.2 Hct 39.8 MCV 93 MCH 30.8 MCHC 33.2 RDW 12.2 Plt Count 395 MPV 9.1 Sodium 139 Potassium 3.7 Chloride 104 Carbon Dioxide 23.8 Anion Gap 11.2 H BUN 9 Creatinine 0.8 Est GFR (CKD-EPI 2020) 99.71 Glucose 95 Calcium 9.3 Total Bilirubin 0.33 AST 14 L ALT 12 L Alkaline Phosphatase 224 H Total Protein 7.4 Albumin 2.5 L Urine Opiates Screen Negative Urine Methadone Screen Negative Urine Fentanyl Screen Pending Ur Barbiturates Screen Negative Ur Tricyclics Screen Negative Ur Amphetamines Screen Negative U Benzodiazepines Scrn Negative Urine Cocaine Screen Negative Ur THC Screen Positive A ABO/Rh O Positive Antibody Screen NEGATIVE
[2024-05-14 07:45] VITALS: BP 105/69; PULSE 59; RESP 18; TEMP 36.4; O2SAT 100
[2024-05-14] MEDS: Dibucaine 1% 28 GM TUBE TP (07:45)
[2024-05-14] MEDS: Docusate Sodium 100 MG CAP PO (07:45)
[2024-05-14] MEDS: Nicotine 21 MG/24 HR PATCH TD (09:04)
--- NOTE | 2024-05-14 11:00 | ANES.POST_ITS ---
Postoperative Evaluation Date, Time and Location Date Performed: 05/14/24 Time Performed: 11:00 Patient Location: Obstetrics Vital Signs Most Recent Imported Vital Signs: Most Recent Vital Signs Temp Pulse Resp BP Pulse Ox 36.4 C L 59 L 18 105/69 100 05/14/24 07:45 05/14/24 07:45 05/14/24 07:45 05/14/24 07:45 05/14/24 07:45 Pain Score Most Recent Pain Score: Most Recent Pain Score Pain Level 0 05/13/24 16:00 Assessment Mental Status: Awake (Alert & Oriented to Patient Baseline) Airway and Respiratory Function: Patent airway with normal (patient baseline) respiratory exam Cardiovascular Function: Hemodynamically Stable Hydration Status: Adequately Hydrated Nausea & Vomiting: No Nausea or Vomiting Pain: Pt. Denies Any Pain Peripheral Nerve Block: Patient did not receive a nerve block Postoperative Comments:: Epidural removed by OB staff. Pt is comfortable this morning and was happy with epidural effectiveness during laboring process. Pili Sanchez, SENIOR [employer] ENG[employer]ER
[2024-05-15 11:14] LABS: Fentanyl Scr w/Rfx Confirm Negative ng/mL (<1)
== END 2024-05-14 09:11 | disposition home or self-care (01) | DRG 806 ==
LOC: BCD 07:46 → OBS 07:46
PROVIDERS: Admitting Provider Obstetrics & Gynecology Gynecology; PCP Physician Assistant; Visit Provider Obstetrics & Gynecology Gynecology
DX: O99.324 Drug use complicating childbirth (principal); F11.20 Opioid dependence, uncomplicated; Z37.0 Single live birth; O98.42 Viral hepatitis complicating childbirth; O99.354 Diseases of the nervous system complicating childbirth; B19.20 Unspecified viral hepatitis C without hepatic coma; O99.334 Smoking (tobacco) complicating childbirth; F17.210 Nicotine dependence, cigarettes, uncomplicated; O99.344 Other mental disorders complicating childbirth; F31.9 Bipolar disorder, unspecified; O69.1XX0 Labor and delivery complicated by cord around neck, with compression, not applicable or unspecified; O70.0 First degree perineal laceration during delivery; Z3A.40 40 weeks gestation of pregnancy; G43.909 Migraine, unspecified, not intractable, without status migrainosus; Z59.82 Transportation insecurity; Z59.89 Other problems related to housing and economic circumstances; Z55.6 Problems related to health literacy
CPT/HCPCS: 80053; 80307; 85027; 86850; 86900; 86901; 59025